=== PATIENT | male | born 1965 | race Caucasian/White ===

== ENCOUNTER 2023-12-31 11:52 | Outpatient (CLI) | payer OTHER, SELFPAY ==
[2023-12-31 13:41] LABS: Liquefaction Semen Complete in 30 min. (<30 minutes); Semen Color Opaque (Grey-opaque); Semen Immotility 50 %; Semen Morphology Result to Follow; Semen Non-Progressive Motility 10 %; Semen Progressive Motility 40 % (>32); Semen Total Motility 50 (>40% (PM+NP)); Semen Viscosity Not Increased (Not Increa.); Sperm Count 20.9 Mil/mL (60-150 million/mL); pH Semen 8.5 (7.2-8.0)
[2024-01-06 23:04] LABS: Fructose, Semen 77 mg/dL (150-600)
== END 2023-12-31 11:53 | disposition home or self-care (01) ==
PROVIDERS: PCP Physician Assistant; Visit Provider Physician Assistant
DX: Z31.41 Encounter for fertility testing (principal)
CPT/HCPCS: 82757; 88160; 89320